=== PATIENT | male | born 2000 | race Caucasian/White ===

== ENCOUNTER 2023-10-20 04:36 | Emergency (ER) | payer BC, SELFPAY ==
[2023-10-20 04:37] VITALS: PULSE 90; RESP 16; TEMP 36.1; O2SAT 96; BMI 41.4
[2023-10-20 04:40] VITALS: BP 133/79
--- NOTE | 2023-10-20 04:40 | EX.ED.DYSGE1 ---
HPI History of Present Illness Chief Complaint: Anxiety [facility] Medical History (Updated 10/20/23 @ 04:40 by Nash Marte) Anxiety Home Medications hydroxyzine HCl 25 mg tablet 25 mg PO TID PRN anxiety 7 days #21 tabs 10/20/23 [Rx Last Taken Unknown] lamotrigine 200 mg tablet (Lamictal) 200 mg PO DAILY 10/20/23 [History Last Taken Unknown] Allergy/AdvReac Type Severity Reaction Status Date / Time No Known Allergies Allergy Verified 10/20/23 04:41 Social History Smoking Status: Current every day smoker tobacco type: e-cigarettes EXAM Physical Exam Const Vital Signs: 10/20/23 04:37 10/20/23 04:40 Temperature 97 F L Temperature Source Temporal Pulse Rate 90 Respiratory Rate 16 Blood Pressure 133/79 H Blood Pressure Mean 97 Pulse Ox 96 Oxygen Delivery Method Room Air MDM MDM MDM Narrative Medical decision making narrative: HISTORY OF PRESENT ILLNESS: 23-year-old male here with concern for anxiety. States just prior to arrival became very anxious stood up felt dizzy had tingling in bilateral hands around his mouth. He felt short of breath. Notes the symptoms have since resolved. Denies any chest pain. Denies any cough or fever. Denies any bleeding diathesis. The patient denies recent surgery in the last 4 weeks or immobilization in the last 3 days, denies previous diagnosis of DVT or PE, hemoptysis, unilateral leg swelling or malignancy with treatment the last 6 months or palliative. No estrogen use noted. Patient denies suicidal ideation, homicidal ideation, auditory visual hallucinations. REVIEW OF SYSTEMS: Pertinent positives: Anxiety, paresthesias, dizziness, shortness of breath Pertinent negatives: Chest pain, syncope, focal weakness PHYSICAL EXAM: Nursing triage notes reviewed, Vital signs reviewed Constitutional: please see mdm HENT: MMM Eyes: Pupils equal round and reactive to light, Extraocular muscles intact Neck: No stridor, no JVD, full neck ROM Lungs: Clear to auscultation, No wheezing or rales. No increased work of breathing, no conversational dyspnea, no accessory muscle use, no nasal flaring. No respiratory distress noted Heart: Regular rate and rhythm, No murmurs, No rubs and No gallops, 2+ distal pulses (radial, femoral, posterior tibial) in all extremities Abdomen: Soft, there is no tenderness, rigidity, rebound or guarding, no obvious peritoneal signs, no palpable pulsatile abdominal masses, no auscultated abdominal bruit : No CVAT Extremities: No edema Neuro: Alert and oriented x3, neuro exam at baseline, cranial nerves II through XII are intact. No pain with extraocular muscle movement. There is negative test of skew. 5 of 5 strength in upper and lower extremities in flexion extension. Intact sensation to light touch in upper and lower extremity dermatomes. No truncal or extremity ataxia. No dysdiadochokinesia. Normal gait. 2+ reflexes in upper and lower extremities. No meningeal signs. Negative Babinski. NIH of 0. Skin: No rash or lesions noted MEDICAL DECISION MAKING: Chief Complaint: Anxiety External records reviewed: Prior records reviewed, no recent ED visits or hospitalizations noted Factors affecting care: anxiety Social determinants of health: none History obtained from others: none Consults: none MDM Narrative: Patient was hemodynamically stable, afebrile, nontoxic-appearing. Exam without focal cardiopulmonary normalities. No focal neurologic deficits. Patient had no stigmata of VTE on exam. Lungs were clear. I considered the following differential diagnosis: Anxiety, ACS, PE, pneumonia, CVA Clinical exam, history and restratification tools not consistent with PE, CVA. There is no focal lung findings patient not hypoxic and no cough or other infectious symptoms to suggest pneumonia. He had a low risk Wells score low suspicion for PE. EKG was nonischemic suspicion for ACS. Suspect patient had side effects of hyperventilation secondary to likely anxiety. Patient is appropriate discharge home with prescription Atarax and close psychiatry follow-up. ALL IMAGES (IF OBTAINED) HAVE BEEN PERSONALLY REVIEWED AND INTERPRETED BY MYSELF. EKG with normal sinus rhythm, normal axis, normal intervals, no ST or T wave changes to suggest ischemia. No evidence of WPW, Brugada, ARVD. The patient and/or family, caregivers express understanding. The patient and/or family, caregivers agrees with the plan. Shared decision making: I will have a discussion with the patient and or visitors regarding risk/benefits of further testing or admission. They will be made aware of of the risk/benefits inherent in this decision they will be given the opportunity to voice understanding. Total critical care time today provided was at least 0 [] minutes. This excludes separately billable procedures. Critical care time (if documented) is secondary to the patient having high probability of clinically significant/life threatening deterioration in the patient's condition which required my urgent intervention. Impression: 1. Paresthesias Dispo: Discharge Discharge Plan Triage Chief Complaint: Anxiety ED Provider: Viraj Evans Dx/Rx/DC Orders Instructions: ED Hyperventilation Syndrome Prescriptions: New hydroxyzine HCl 25 mg tablet 25 mg PO TID PRN (Reason: anxiety) 7 Days Qty: 21 0RF No Action lamotrigine [Lamictal] 200 mg tablet 200 mg PO DAILY Primary Care Provider: Care Physician,Mercedes Primary Referrals: Rob Edward DO [Med Staff - Regulatory Affairs Portfolio Leader] - Activity Restrictions/Additional Instructions: Thank you for trusting us with your care today! Take Atarax or hydroxyzine as needed for anxiety. Please return to the emergency department if your symptoms change or worsen. Specifically develop chest pain, shortness of breath that is persistent. Develop slurred speech, loss of vision, difficulty talking or swallowing. If you develop loss of sensation or movement in your arms or legs. Please follow with your primary care physician and/or psychiatrist for further outpatient evaluation and management. Disposition Disposition: Home, Self Care
--- NOTE | 2023-10-20 04:51 | EKG12_ITS ---
Test Reason : ANXIETY Blood Pressure : / mmHG Vent. Rate : 092 BPM Atrial Rate : 092 BPM P-R Int : 184 ms QRS Dur : 104 ms QT Int : 370 ms P-R-T Axes : 026 038 028 degrees QTc Int : 457 ms Normal sinus rhythm with sinus arrhythmia Normal ECG Confirmed by GILL NOWAK, PIETER ([id number]), editor in chief ESTHER VARMA ([id number]) on 10/21/2023 1:27:54 PM Referred By: Confirmed By:PIETER GARLAND MD
[2023-10-20 05:10] VITALS: BP 123/79; PULSE 90; RESP 16; O2SAT 96
== END 2023-10-20 05:11 | disposition home or self-care (01) ==
PROVIDERS: Emergency Provider Emergency Medicine; Visit Provider Emergency Medicine
DX: R20.2 Paresthesia of skin (principal); F41.9 Anxiety disorder, unspecified; F17.290 Nicotine dependence, other tobacco product, uncomplicated; Z79.899 Other long term (current) drug therapy
CPT/HCPCS: 93005; 99282